=== PATIENT | female | born 1990 | race Caucasian/White ===

== ENCOUNTER 2018-08-28 22:48 | Emergency (ER) | payer MEDICAID ==
--- NOTE | 2018-08-28 23:16 | ED PDOC ---
Upper Extremity Pain/Injury Time Seen by Provider: 08/28/18 23:01 Chief Complaint (Nursing): Upper Extremity Problem/Injury Chief Complaint (Provider): left elbow pain History Per: Patient History/Exam Limitations: no limitations Onset/Duration Of Symptoms: Days (2) Additional Complaint(s): 28 y/o female presents for evaluation of left elbow pain x 2 days. Patient states she noticed a small red bump near elbow, which has since gotten larger and is starting to spread up arm. Associated itching, pain. Denies fever, trauma, numbness/weakness left upper extremity, limitation of movement, recent travel. Past Medical History Reviewed: Historical Data, Nursing Documentation, Vital Signs Vital Signs: Last Vital Signs Temp 97.8 F 08/28/18 22:55 Pulse 64 08/28/18 22:55 Resp 18 08/28/18 22:55 BP 128/84 08/28/18 22:55 Pulse Ox 99 08/28/18 22:55 - Medical History PMH: No Chronic Diseases - Surgical History Surgical History: No Surg Hx - Family History Family History: States: No Known Family Hx - Living Arrangements Living Arrangements: With Family - Home Medications Home Medications: Ambulatory Orders Medication Instructions Recorded Cephalexin [Keflex] 500 mg PO Q6 #27 capsule 08/29/18 Ibuprofen [Motrin Tab] 1 tab PO Q6 PRN #20 tab 08/29/18 Sulfamethoxazole/Trimethoprim 1 tab PO BID #13 tab 08/29/18 [Bactrim DS 800 mg-160 mg] - Allergies Allergies/Adverse Reactions: Allergies Allergy/AdvReac Type Severity Reaction Status Date / Time No Known Allergies Allergy Verified 08/28/18 22:55 Review of Systems ROS Statement: Except As Marked, All Systems Reviewed And Found Negative Musculoskeletal: Positive for: Arm Pain (left elbow) Physical Exam - Reviewed Nursing Documentation Reviewed: Yes Vital Signs Reviewed: Yes - Physical Exam Appears: Positive for: Well, Non-toxic, No Acute Distress Head Exam: Positive for: ATRAUMATIC, NORMAL INSPECTION, NORMOCEPHALIC Skin: Positive for: Normal Color Eye Exam: Positive for: Normal appearance ENT: Positive for: Normal ENT Inspection Cardiovascular/Chest: Positive for: Regular Rate, Rhythm Respiratory: Positive for: Normal Breath Sounds Extremity: Positive for: Normal ROM, Swelling (medial aspect distal left arm/elbow; warm to touch. No fluctuance. FROM ) Neurologic/Psych: Positive for: Alert, Oriented (x3) - Laboratory Results Result Diagrams: 08/28/18 23:40 08/28/18 23:40 - ECG O2 Sat by Pulse Oximetry: 99 - Progress ED Course And Treament: -cbc -cmp -lactic acid -blood cultures -uric acid -IV toradol -PO benadryl Patient states she is feeling better on re-eval, redness improved Patient educated on findings, discharged with rx Bactrim (dose given in ED), Keflex (dose given in ED), ibuprofen Advised follow up PMD within 2-3 days Area marked, advised to return to ED for spreading redness, worsening pain, fever, or other concerning symptoms Disposition - Clinical Impression Clinical Impression: Cellulitis of left upper extremity - Patient ED Disposition Is Patient to be Admitted: No Counseled Patient/Family Regarding: Studies Performed, Diagnosis, Need For Followup - Disposition Disposition: Routine/Home Disposition Time: 01:52 Condition: IMPROVED Prescriptions: Cephalexin [Keflex] 500 mg PO Q6 #27 capsule Ibuprofen [Motrin Tab] 1 tab PO Q6 PRN #20 tab PRN Reason: Pain, Moderate (4-7) Sulfamethoxazole/Trimethoprim [Bactrim DS 800 mg-160 mg] 1 tab PO BID #13 tab Instructions: Cellulitis and Erysipelas (Skin Infections) Forms: [employer] ([place])
[2018-08-28 23:55] LABS: BASO % 0.4 % (0.0-2.0); EOS # 0.2 K/uL (0.0-0.7); EOS % 2.8 % (0.0-4.0); HEMOGLOBIN 11.6 g/dL (12.0-16.0); LYMPH # 2.3 K/uL (1.0-4.3); LYMPH % 40.4 % (20.0-40.0); MEAN CELL VOLUME 85.1 fl (81.0-99.0); MEAN CORPUSCULAR HEMOGLOBIN 27.7 pg (27.0-31.0); MEAN CORPUSCULAR HGB CONC 32.5 g/dL (33.0-37.0); MEAN PLATELET VOLUME 8.5 fl (7.2-11.7); MONO # 0.3 K/uL (0.0-0.8); MONO % 5.8 % (0.0-10.0); NEUT # 2.9 K/uL (1.8-7.0); NEUT % 50.6 % (50.0-75.0); NRBC % 0.1 % (0.0-0.0); RBC 4.21 Mil/uL (3.80-5.20); RED CELL DISTRIBUTION WIDTH 13.7 % (11.5-14.5); WHITE BLOOD COUNT 5.8 K/uL (4.8-10.8)
[2018-08-29 00:03] LABS: ALB/GLOB RATIO 1.4 (1.0-2.1)
[2018-08-29 00:04] LABS: ALBUMIN 4.1 g/dL (3.5-5.0); ALT/SGPT 44 U/L (9-52); AST/SGOT 30 U/L (14-36); BLOOD UREA NITROGEN 15 mg/dl (7-17); CALCIUM 8.9 mg/dL (8.4-10.2); GFR NON-AFRICAN AMERICAN > 60; URIC ACID 2.1 mg/Dl (2.2-7.5)
[2018-08-29] MEDS ORDERED: Tmp-Smz 800 mg-160 mg DS Tab PO STA (01:05)
[2018-08-29] MEDS ORDERED: Tmp-Smz 800 mg-160 mg DS Tab ONE (01:45)
[2018-08-29 01:48] VITALS: BP 127/78; PULSE 73; RESP 15; TEMP 98.2
[2018-08-29 01:50] VITALS: O2SAT 99
== END 2018-08-29 01:49 | disposition home or self-care (01) ==
LOC: H.ER 22:48
DX: L03.114 Cellulitis of left upper limb (principal)
CPT/HCPCS: 80053; 81025; 83605; 84550; 85025; 85651; 87040; 96374; 99284; J1885

== ENCOUNTER 2018-12-23 13:57 | Emergency (ER) | payer MEDICAID ==
[2018-12-23 14:00] VITALS: RESP 18
--- NOTE | 2018-12-23 14:39 | ED PDOC ---
Lower Extremity Pain/Injury Time Seen by Provider: 12/23/18 14:04 Chief Complaint (Nursing): Lower Extremity Problem/Injury Chief Complaint (Provider): Right ankle pain History Per: Patient History/Exam Limitations: no limitations Onset/Duration Of Symptoms: Mins (x30) Current Symptoms Are (Timing): Still Present Additional Complaint(s): 28 y/o female presents to the ER via EMS for evaluation of right ankle pain. 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 She states she has nonradiating, localized right ankle pain but denies head injury or LOC. NO other complaints or injuries offered. 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 PMD: in [place] Past Medical History Reviewed: Historical Data, Nursing Documentation, Vital Signs Vital Signs: Last Vital Signs Temp 98.6 F 12/23/18 14:00 Pulse 75 12/23/18 14:00 Resp 18 12/23/18 14:00 BP 127/72 12/23/18 14:00 Pulse Ox 100 12/23/18 14:00 Primary Care Provider: FAMILY PROVIDER,NO - Medical History PMH: No Chronic Diseases - Surgical History Other surgeries: Breast augmentation - Family History Family History: States: Unknown Family Hx - Social History Current smoker - smoking cessation education provided: No Alcohol: Social - Home Medications Home Medications: Ambulatory Orders Medication Instructions Recorded Cephalexin [Keflex] 500 mg PO Q6 #27 capsule 08/29/18 Ibuprofen [Motrin Tab] 1 tab PO Q6 PRN #20 tab 08/29/18 Sulfamethoxazole/Trimethoprim 1 tab PO BID #13 tab 08/29/18 [Bactrim DS 800 mg-160 mg] Acetaminophen [Acetaminophen 8 650 mg PO Q8 PRN #21 tablet.er 12/23/18 Hour] Naproxen 500 mg PO BID PRN #20 tab 12/23/18 - Allergies Allergies/Adverse Reactions: Allergies Allergy/AdvReac Type Severity Reaction Status Date / Time No Known Allergies Allergy Verified 12/23/18 13:59 Review of Systems ROS Statement: Except As Marked, All Systems Reviewed And Found Negative Musculoskeletal: Positive for: Other (Right ankle pain; no head injury) Physical Exam - Reviewed Nursing Documentation Reviewed: Yes Vital Signs Reviewed: Yes - Physical Exam Comments: GENERAL APPEARANCE: Patient is awake, alert, oriented x 3, in no acute distress. Uncomfortable appearing. SKIN: Warm, dry; (-) cyanosis. CHEST AND RESPIRATORY: (-) rales, (-) rhonchi, (-) wheezes; breath sounds equal bilaterally. Respirations even and nonlabored. HEART AND CARDIOVASCULAR: (-) irregularity ENT: Mucus membranes moist. Airway patent, (-) stridor. NECK: Supple, FROM LOWER EXTREMITY: Right ankle: (+) tenderness to lateral malleolus and lateral aspect of talus, (+) small effusion to lateral malleolus with decreased ROM secondary to pain, (-) erythema, (-) ecchymosis (-) skin break (-) crepitus. Remainder of foot and lower extremity nontender with full ROM. Sensation and capillary refill intact. (+) pulses. NEURO AND PSYCH: Mental status as above. Speech: clear. (-) facial asymmetry. Normal cognition. - Laboratory Results Urine POC: Negative - ECG O2 Sat by Pulse Oximetry: 100 (RA) Pulse Ox Interpretation: Normal Medical Decision Making Medical Decision Making: Initial Impression: acute ankle pain s/p fall, r/o fracture Initial Plan: --Motrin 800mg PO --Right ankle X-ray 3 views --Re-evaluation X-ray shows possible chip fracture of the lateral aspect of the talus. In light of findings, consult placed to podiatry. Case discussed with podiatry resident, Allen Garvey, who is agreeable to evaluate patient in ER. 15:50 Podiatry resident at bedside. 1605 Patient placed in posterior short leg splint by podiatry. NV intact after placement. RICE encouraged. Patient provided with crutches and instructed on crutch walking by podiatry. Podiatry requesting CT evaluation of lower extremity at this time. CT without contrast ordered. [address] reviewed, radiology report follows Date of service: 12/23/2018 PROCEDURE: CT right ankle. HISTORY: r/o talus fracture COMPARISON: December 23, 2018. Plain film radiographs right ankle. TECHNIQUE: 2.5 mm axial acquisition and display. Coronal and sagittal reconstructions. 3D volume rendering. Dose report (mGy-cm): 272.53 FINDINGS: No significant/acute osseous, articular abnormalities. The ankle mortise is intact including the anatomic relationships of the distal tibia, fibula and talus. Plantar soft tissue swelling at the level of the calcaneus without calcaneal fracture. IMPRESSION: Soft tissue swelling without acute articular or osseous abnormality. If ligamentous injury or bone contusion is suspected MRI is the recommended procedure of choice. On re-evaluation, patient reports improvement of symptoms. On exam, patient remains AAOx3, in no acute distress. VSS, stable for discharge. Lab/Diagnostic results d/w the patient in great detail. Diagnosis of acute ankle pain/sprain d/w the patient. Based on history, exam and diagnostic results, plan will be for outpatient follow up with podiatry clinic. Patient instructed to follow-up with pmd / referral provided / the clinic in 1- 2 days without fail. Advised to take medication as prescribed. Return to the emergency room at any time for any new or worsening symptoms. Patient states she fully agrees with and understands discharge instructions. States that she agrees with the plan and disposition. Verbalized and repeated discharge instructions and plan. I have given the patient opportunity to ask any additional questions. Scribe Attestation: Documented by Gary Nolasco acting as a scribe for Patricia BECKER. Provider Scribe Attestation: All medical record entries made by the Scribe were at my direction and personally dictated by me. I have reviewed the chart and agree that the record accurately reflects my personal performance of the history, physical exam, medical decision making, and the department course for this patient. I have also personally directed, reviewed, and agree with the discharge instructions and disposition. Disposition - Clinical Impression Clinical Impression: Ankle pain, Ankle sprain - Patient ED Disposition Is Patient to be Admitted: No Counseled Patient/Family Regarding: Studies Performed, Diagnosis, Need For Followup, Rx Given - Disposition Referrals: Podiatry Clinic [Outside] Disposition: Routine/Home Disposition Time: 17:55 Condition: STABLE Additional Instructions: The emergency medical care you received today was directed at your acute symptoms. If you were prescribed any medication, please fill it and take as directed. It may take several days for your symptoms to resolve. Return to the Emergency Department if your symptoms worsen, do not improve, or if you have any other problems. Please contact your doctor in 2 days for re-evaluation and follow up / or call one of the physicians/clinics you have been referred to that are listed on the Patient Visit Information form that is included in your discharge packet. Bring any paperwork you were given at discharge with you along with any medications you are taking to your follow up visit. Our treatment cannot replace ongoing medical care by a primary care provider (PCP) outside of the emergency department. Prescriptions: Acetaminophen [Acetaminophen 8 Hour] 650 mg PO Q8 PRN #21 tablet.er PRN Reason: Pain, Moderate (4-7) Naproxen 500 mg PO BID PRN #20 tab PRN Reason: Pain, Moderate (4-7) Instructions: Ankle Sprain, How to Use Crutches, Going Up and Down Curbs or Stairs With a Walker or Crutches Forms: [employer] ([place]ese), [facility] ED School/Work Excuse Print Language: ESTONIAN - POA Present On Arrival: Falls Or Trauma
--- NOTE | 2018-12-23 16:39 | RAD ---
Date of service: 12/23/2018 PROCEDURE: Right Ankle Radiographs. HISTORY: s/p fall, joint pain COMPARISON: None available. TECHNIQUE: 3 views obtained. FINDINGS: BONES: Normal. No fracture. JOINTS: Normal. No osteoarthritis. Ankle mortise maintained. Talar dome intact SOFT TISSUES: Mild soft tissue swelling. OTHER FINDINGS: None. IMPRESSION: No evidence of acute fracture or dislocation
--- NOTE | 2018-12-23 16:54 | CP.PCM.CON ---
History of Present Illness - History of Present Illness History of Present Illness: Consult note for attending Dr. King: 28 y/o F patient with No PMH seen and evaluated in the ED for pain and swelling of the Right ankle. Patient states that 2 hours ago she tripped and twisted her right ankle. She states that she immediately had pain and swelling on the outside of her right ankle. She states that she couldn't bear weight on her left foot and was brought immediately to the ED. Patient states that the pain is 8/10 and increase to 10/10 when she bear weight on her right foot. Patient states that the swelling decreased with ice that was applied in the ED. SHe states that she has some nubness on the outside of her right ankle. Patient denies any tingling or burning sensation at this time. She denies any recent F/N/V/C/CP or SOB. She denies any other pedal complaint at this time. PMH: None. PSH: None Allergies: NKDA Social Hx: Denies smoking, EtOH use or Illicit drug use. Review of Systems - Review of Systems Review of Systems: As per HPI - Constitutional Constitutional: As Per HPI Past Patient History - Past Social History Alcohol: Social - PSYCHIATRIC Hx Substance Use: No - SURGICAL HISTORY Hx Surgeries: Yes (breast augmentation) - ANESTHESIA Hx Anesthesia: Yes Hx Anesthesia Reactions: No Meds Allergies/Adverse Reactions: Allergies Allergy/AdvReac Type Severity Reaction Status Date / Time No Known Allergies Allergy Verified 12/23/18 13:59 Physical Exam - Constitutional Appears: Well, Non-toxic, No Acute Distress - Head Exam Head Exam: ATRAUMATIC, NORMOCEPHALIC - Extremities Exam Additional comments: RLE focused exam: Vasc: DP/PT 2/4 b/l. Cap refill < 3 sec to all digits, Temp gradient warm to cool from proximal to distal. Moderate non pitting edema and ecchymosis of the lateral perimalleolar area. Neuro: Gross and protective sensations are intact. Derm: No open lesions, No clinical signs of active infection. Moderate non pitting edema and ecchymosis of the lateral perimalleolar area MSK: Pain on palpating the lateral perimalleolar area. Pain with foot dosiflexion and inversion. MMT couldn't be assessed due to pain and guarding. - Neurological Exam Neurological exam: Alert, Oriented x3 - Psychiatric Exam Psychiatric exam: Normal Affect, Normal Mood Results - Vital Signs Recent Vital Signs: Last Vital Signs Temp 98.6 F 12/23/18 14:00 Pulse 75 12/23/18 14:00 Resp 18 12/23/18 14:00 BP 127/72 12/23/18 14:00 Pulse Ox 100 12/23/18 15:58 Assessment & Plan - Assessment and Plan (Free Text) Assessment: 28 y/o F patient with No PMH seen and evaluated in the ED for right ankle sprain/chip fracture of the right talus. Plan: Patient seen and evaluated in the ED Plan discussed with Dr. King. Charts and vitals reviewed; Afebrile. X-ray right ankle: No osseous anomalies noted (there might be a small crack of the lateral side of the talus) Ordered RLE CT scan. Posterior splint applied to the RLE. Patient instructed to keep the splint C/D/I Patient instructed to stay NWB to the RLE. Dispensed pair of crutches. Patient instructed to ambulate using crutches. Patient instructed to use the prescribed pain meds if needed. Patient educated and advised to do RICE protocol Patient expressed verbal understanding. Patient will follow up in the podiatry clinic upon discharge from the ED. - Date & Time Date: 12/23/18 Time: 16:46
--- NOTE | 2018-12-23 17:51 | CT ---
Date of service: 12/23/2018 PROCEDURE: CT right ankle. HISTORY: r/o talus fracture COMPARISON: December 23, 2018. Plain film radiographs right ankle. TECHNIQUE: 2.5 mm axial acquisition and display. Coronal and sagittal reconstructions. 3D volume rendering. Dose report (mGy-cm): 272.53 FINDINGS: No significant/acute osseous, articular abnormalities. The ankle mortise is intact including the anatomic relationships of the distal tibia, fibula and talus. Plantar soft tissue swelling at the level of the calcaneus without calcaneal fracture. IMPRESSION: Soft tissue swelling without acute articular or osseous abnormality. If ligamentous injury or bone contusion is suspected MRI is the recommended procedure of choice.
[2018-12-23 18:04] VITALS: BP 114/76; PULSE 70; TEMP 98.2
[2018-12-23 23:52] VITALS: O2SAT 100
== END 2018-12-23 18:09 | disposition home or self-care (01) ==
LOC: H.ER 13:57
DX: S93.401A Sprain of unspecified ligament of right ankle, initial encounter (principal); W19.XXXA Unspecified fall, initial encounter; Y99.0 Civilian activity done for income or pay